=== PATIENT | male | born 1990 | race Caucasian/White ===

== ENCOUNTER 2020-05-02 07:42 | Emergency (ER) | payer OTHER ==
--- NOTE | 2020-05-02 20:17 | RAD ---
LEFT KNEE FOUR VIEWS: Date: 05-02-2020 FINDINGS: No fracture or joint effusion was seen. The joint space is normal in width and the articular surfaces are smooth. IMPRESSION: No acute bony finding. POS: HOME
== END 2020-05-02 08:29 | disposition home or self-care (01) ==
LOC: BURERS 07:42
DX: S80.02XA Contusion of left knee, initial encounter (principal); W18.30XA Fall on same level, unspecified, initial encounter